=== PATIENT | female | born 1945 | race Caucasian/White ===

== ENCOUNTER 2016-10-05 08:29 | Emergency (ER) | payer OTHER ==
[~2016-10-05] VITALS: Ht 160 cm; Wt 136.1 kg
[2016-10-05 11:30] VITALS: BP 140/80
[2016-10-05] MEDS: KETOROLAC TROMETH 60MG/2ML VIAL IM ONE ×2 (11:38→11:51)
== END 2016-10-05 16:55 | disposition home or self-care (01) ==
LOC: ER 08:32
DX: S76.012A Strain of muscle, fascia and tendon of left hip, initial encounter (principal); S66.912A Strain of unspecified muscle, fascia and tendon at wrist and hand level, left hand, initial encounter; M25.551 Pain in right hip; Z88.5 Allergy status to narcotic agent; W18.39XA Other fall on same level, initial encounter; Y93.89 Activity, other specified; Y92.89 Other specified places as the place of occurrence of the external cause; Y99.8 Other external cause status
CPT/HCPCS: 73110; 73200; 73502; 96372; 99284; J1885